=== PATIENT | female | born 1995 | race Two or more races ===

== ENCOUNTER → 2019-07-14 | Outpatient (REF) | payer OTHER ==
[2019-07-14 20:37] LABS: BASO % 0.5 % (0.0-1.0); EOS # 0.2 10^3/uL (0.0-0.5); EOS % 2.6 % (0.0-3.0); HEMATOCRIT 40.5 % (36.0-47.0); HEMOGLOBIN 13.1 g/dl (12.0-15.5); LYMPH # 3.4 10^3/uL (1.5-5.0); LYMPH % 41.1 % (24.0-44.0); MEAN CORPUSCULAR HEMOGLOBIN 27.5 pg (27.0-33.0); MEAN CORPUSCULAR HGB CONC 32.3 g/dl (32.0-36.5); MEAN CORPUSCULAR VOLUME 85.1 fl (80.0-96.0); MONO # 0.7 10^3/uL (0.0-0.8); MONO % 8.6 % (0.0-5.0); NEUTROPHILS # 3.8 10^3/uL (1.5-8.5); NEUTROPHILS % 46.2 % (36.0-66.0); PLATELET COUNT, AUTOMATED 263 10^3/uL (150-450); RED BLOOD COUNT 4.76 10^6/uL (4.00-5.40); WHITE BLOOD COUNT 8.2 10^3/uL (4.0-10.0)
== END ==
LOC: M SFHCLERA 16:12
PROVIDERS: ATTEND Nurse Practitioner Family
DX: R59.0 Localized enlarged lymph nodes (principal)

== ENCOUNTER → 2019-07-23 | Outpatient (CLI) | payer OTHER ==
--- NOTE | 2019-07-23 15:52 | REP ---
Soft-tissue neck sonography: History: Enlarged lymph node in the neck. Right submandibular lymph node. Times 12 weeks. Sonographic findings: Scanning through the right submandibular region demonstrates multiple lymph nodes. At the level of the the lump, there appear to be three lymph nodes adjacent one another which are somewhat hypertrophied. In the aggregate this area measures 3.3 x 1.2 x 2.8 cm. Contralateral left-sided scanning demonstrates a mildly enlarged cervical node as well measuring 2.2 x 1.9 x 1.0 cm. No abnormal fluid collection is seen. Limited imaging of the thyroid shows no abnormality. Impression: Bilateral cervical lymphadenopathy. The area of the lump appears to be several adjacent lymph nodes. This would be better evaluated with soft tissue CT study of the neck, preferably with IV contrast. Electronically Signed by Ignacio Regalado MD 07/23/2019 04:07 P
== END ==
LOC: M LRY 13:33
PROVIDERS: ATTEND Nurse Practitioner Family
DX: R59.0 Localized enlarged lymph nodes (principal)

== ENCOUNTER → 2019-08-10 | Outpatient (CLI) | payer OTHER ==
[~2019-08-10] MED LIST: ISOVUE-370 76% 100ML VIAL (Q9967) As Ordered ONE
--- NOTE | 2019-08-10 15:58 | REP ---
CT neck soft tissues with IV contrast: History: Enlarged lymph node in the neck. Comparison sonography July 23, 2019. CT contrast dose: 75 mL of intravenous Isovue [address] findings: Parotid and submandibular glands are normal and symmetric. Thyroid lobes are homogeneous. No vascular abnormality is observed. There is mild bilateral tonsillar hypertrophy left more so than right. There is mucosal thickening in the maxillary sinuses bilaterally. There is some mucosal thickening in the right ethmoid sinuses. No intraorbital abnormality is appreciated. Visualized intracranial structures are unremarkable. There are a few anterior cervical and submandibular lymph nodes present bilaterally. The largest anterior cervical node on the right measures 1.2 x 1.5 x 2.3 cm. There are three or four smaller lymph nodes superior to this. On the left the largest lymph node measures 2.5 x1.5 x 1.3 cm. There are multiple small normal-sized lymph nodes adjacent to this. There are scattered posterior cervical lymph nodes that are all quite small. No supraclavicular adenopathy is seen. The lung apices are clear. Impression: Mild anterior cervical lymphadenopathy with one mildly enlarged lymph node in each anterior cervical lymph node chain and multiple small anterior and posterior and submandibular lymph nodes which appear normal. Bilateral maxillary and right ethmoid sinus mucosal changes. Otherwise negative. Electronically Signed by Ignacio Regalado MD 08/10/2019 04:15 P
== END ==
LOC: M RAD 12:18
PROVIDERS: ATTEND Nurse Practitioner Family
DX: R59.0 Localized enlarged lymph nodes (principal)
CPT/HCPCS: 70491; Q9967

== ENCOUNTER 2020-01-05 07:34 | Day surgery (SDC) | payer OTHER ==
[~2020-01-05] VITALS: Ht 165.1 cm; Wt 87.1 kg
[2020-01-05] MEDS ORDERED: fentaNYL 250 MCG/5 ML INJECTION (J3010) As Ordered ONE (08:24)
[2020-01-05] MEDS ORDERED: MIDAZOLAM INJ 2 MG/2 ML VIAL (J2250) As Ordered ONE (08:24)
[2020-01-05] MEDS ORDERED: dexameTHASONE 4 MG/ML 1ML VIAL (J1100) As Ordered ONE (08:26)
[2020-01-05] MEDS ORDERED: ONDANSETRON 4MG/2ML VIAL (J2405) As Ordered ONE (08:26)
[2020-01-05] MEDS ORDERED: LIDOCAINE 2% INJ 100 MG/5 ML SDV (FOR ANES.) As Ordered ONE (08:26)
[2020-01-05] MEDS ORDERED: propofoL 200 MG/20 ML VIAL As Ordered ONE (08:27)
[2020-01-05] MEDS ORDERED: ROCURONIUM BROMIDE 50 MG/5 ML VIAL As Ordered ONE (08:27)
[2020-01-05] MEDS ORDERED: TRIAMCINOLONE ACETONIDE SUSP 40 MG/ML VIAL (J3301) As Ordered ONE (09:08)
[2020-01-05] MEDS ORDERED: OXYMETAZOLINE NASAL SPRAY (AFRIN) As Ordered ONE (09:30)
[2020-01-05] MEDS ORDERED: LIDOCAINE 2% JELLY 6 ML SYRINGE As Ordered ONE (09:31)
[2020-01-05] MEDS ORDERED: ACETAMINOPHEN 1000MG 100ML IV BTL (OFIRMEV) (J0131 PER 10MG) As Ordered ONE (09:56)
[2020-01-05] MEDS ORDERED: SUGAMMADEX SODIUM 500 MG/5 ML VIAL (BRIDION) As Ordered ONE (09:57)
[2020-01-05] MEDS ORDERED: ACETAMINOPH W/CODEINE #3 TAB UD PO PRN (10:45)
[2020-01-05] MEDS ORDERED: LR 1,000 ML IV SCH ×2 (10:45)
[2020-01-05] MEDS ORDERED: fentaNYL 100 MCG/2 ML INJECTION (J3010) IV PRN (10:45)
[2020-01-05] MEDS ORDERED: ONDANSETRON 4MG/2ML VIAL (J2405) IV PRN (10:45)
[2020-01-05] MEDS ORDERED: oxyCODONE 5MG TAB PO PRN (10:45)
[2020-01-05 14:20] VITALS: BP 122/88
--- NOTE | 2020-01-05 20:55 | RO ---
DATE OF PROCEDURE: 01/05/2020 PREPROCEDURE DIAGNOSIS: Chronic right submandibular sialadenitis. POSTPROCEDURE DIAGNOSIS: Chronic right submandibular sialadenitis. PROCEDURE: Right submandibular sialendoscopy. SURGEON: Jim Nino MD LINDERMAN OPERATOR: ANESTHESIA: FINDINGS: There was no stone present. The opening of the duct into the mouth was completely sclerotic. I did a papillotomy, opened area and then sutured it to the mucosa. DESCRIPTION OF PROCEDURE: Under general anesthesia with the patient intubated, the patient was draped in the usual manner. I dissected to see if I could identify the opening into the submandibular duct and I could not, so I made an incision in the floor of the mouth. I did use a bit of cautery. Once this was done, I identified the submandibular duct, made an incision and then scoped it. It was open. I put some Kenalog into the submandibular duct then. I sutured the duct to the mucosa. I closed the incision loosely with #[id number] chromic. There was very little bleeding. The patient was extubated and transferred to the recovery room in excellent condition.
== END 2020-01-05 14:45 | disposition home or self-care (01) ==
LOC: M SDC 07:34
PROVIDERS: ATTEND Otolaryngology
DX: K11.20 Sialoadenitis, unspecified (principal)
CPT/HCPCS: 42699; J0131; J1100; J2250; J2405; J3010; J3301

== ENCOUNTER → 2023-04-29 | Outpatient (CLI) | payer OTHER ==
[2023-04-29 11:12] LABS: BASO % 0.2 % (0.0-1.0); EOS # 0.2 10^3/uL (0.0-0.5); EOS % 2.2 % (0.0-3.0); HEMATOCRIT 39.3 % (36.0-47.0); HEMOGLOBIN 12.3 g/dl (12.0-15.5); LYMPH # 2.9 10^3/uL (1.5-5.0); LYMPH % 34.7 % (24.0-44.0); MEAN CORPUSCULAR HEMOGLOBIN 25.5 pg (27.0-33.0); MEAN CORPUSCULAR HGB CONC 31.3 g/dl (32.0-36.5); MEAN CORPUSCULAR VOLUME 81.5 fl (80.0-96.0); MONO # 0.7 10^3/uL (0.0-0.8); MONO % 8.5 % (2.0-8.0); NEUTROPHILS # 4.5 10^3/uL (1.5-8.5); PLATELET COUNT, AUTOMATED 347 10^3/uL (150-450); RED BLOOD COUNT 4.82 10^6/uL (4.00-5.40); WHITE BLOOD COUNT 8.4 10^3/uL (4.0-10.0)
[2023-04-29 11:17] LABS: APPEARANCE, URINE HAZY (CLEAR); BACTERIA, URINE AUTO NEGATIVE (NEGATIVE); BILIRUBIN, URINE AUTO NEGATIVE (NEGATIVE); BLOOD, URINE BLOOD NEGATIVE (NEGATIVE); COLOR, URINE YELLOW (YELLOW); GLUCOSE, URINE (UA) AUTO NEGATIVE (NEGATIVE); KETONE, URINE AUTO NEGATIVE (NEGATIVE); LEUKOCYTE ESTERASE, URINE AUTO NEGATIVE (NEGATIVE); NITRITE, URINE AUTO NEGATIVE (NEGATIVE); PROTEIN, URINE AUTO NEGATIVE (NEGATIVE); RBC, URINE AUTO 0 /HPF (0-3); SPECIFIC GRAVITY URINE AUTO 1.018 (1.002-1.035); SQUAMOUS EPITHELIAL CELL UR AU 5 /HPF (0-6); UROBILINOGEN, URINE AUTO 0.2 mg/dL (0.0-2.0); WBC, URINE AUTO 0 /HPF (0-3)
[2023-04-29 11:39] LABS: ALBUMIN 3.7 G/DL (3.2-5.2); ALKALINE PHOSPHATASE 55 U/L (46-116); ALT/SGPT 18 U/L (7.0-40); AST/SGOT 11 U/L (<34); BILIRUBIN,TOTAL 0.3 MG/DL (0.3-1.2); BLOOD UREA NITROGEN 11 MG/DL (9-23); CALCIUM LEVEL 9.5 MG/DL (8.5-10.1); CARBON DIOXIDE LEVEL 25 MMOL/L (20-31); CHLORIDE LEVEL 106 MMOL/L (98-107); CHOLESTEROL LEVEL 190 MG/DL (<200); CREATININE FOR GFR 0.89 MG/DL (0.55-1.30); GLOMERULAR FILTRATION RATE > 60.0 (>60); GLUCOSE, FASTING 86 MG/DL (60-100); HDL CHOLESTEROL 46.3 MG/DL (>40); LDL CHOLESTEROL 88.1 MG/DL (<100); NON-HDL-C 143.7 MG/DL; POTASSIUM SERUM 4.7 MMOL/L (3.5-5.1); SODIUM LEVEL 137 MMOL/L (136-145); TOTAL PROTEIN 7.1 G/DL (5.7-8.2); TRIGLYCERIDES LEVEL 278 MG/DL (<150)
[2023-04-29 11:42] LABS: TOTAL 25(OH) VITAMIN D 14.8 NG/ML (20.0-100.0)
[2023-04-29 11:43] LABS: THYROID STIMULATING HORMONE 2.011 uIU/ML (0.55-4.78)
[2023-04-29 11:45] LABS: FREE T4 0.99 NG/DL (0.89-1.76)
[2023-04-29 11:46] LABS: VITAMIN B12 LEVEL 253 PG/ML (211-911)
[2023-04-29 11:56] LABS: FOLATE 6.29 NG/ML (>5.4)
== END ==
LOC: M WUC 08:36
PROVIDERS: ATTEND Physician Assistant
DX: Z13.6 Encounter for screening for cardiovascular disorders (principal); R53.83 Other fatigue

== ENCOUNTER → 2024-01-06 | Outpatient (REF) | payer MEDICARE, OTHER | LOC: M SFHCLERA 11:17 | PROVIDERS: ATTEND Family Medicine | DX: J02.9 Acute pharyngitis, unspecified (principal) ==